=== PATIENT | male | born 1990 | race African-American/Black ===

== ENCOUNTER 2018-03-05 20:28 | Emergency (ER) | payer SELFPAY ==
[~2018-03-05 20:28] MED LIST: ISOVUE-370 76%-LOCM 1 ML ONE
[2018-03-05] MEDS ORDERED: Ibuprofen 200 MG TAB ONE (21:25)
[2018-03-05] MEDS ORDERED: Ketorolac Tromethamine 30 MG/ML VIAL ONE (22:39)
[2018-03-05 22:41] LABS: #Eosinphils 0.1 thou/uL (0.0-0.7); #Lymphocytes 3.1 thou/uL (1.20-3.40); #Monocytes 0.4 thou/uL (0.11-0.59); #Neutrophils 3.5 thou/uL (1.40-6.50); %Basophils 0.7 % (0.0-1.0); %Eosinophils 1.7 % (0.0-10.0); %Lymphocytes 42.7 % (21.0-51.0); %Monocytes 6.2 % (0.0-10.0); %Neutrophils 48.8 % (42.0-75.0); Hemoglobin 14.6 g/dL (14.0-18.0); Mean Corpuscular HGB CONC 32.5 g/dL (32.0-36.0); Mean Corpuscular Hemoglobin 27.4 pg (27.0-31.0); Mean Corpuscular Volume 84.3 fL (78.0-98.0); Mean Platelet Volume 7.9 fL (7.4-10.4); Platelet Count 234 thou/uL (130-400); RBC Distribution Width 12.6 % (11.5-14.5); Red Blood Cell (RBC) Count 5.31 mill/uL (4.70-6.10); White Blood Cell (WBC) Count 7.2 thou/uL (4.8-10.8)
[2018-03-05 23:04] LABS: ALT (SGPT) 23 U/L (8-55); AST (SGOT) 15 U/L (5-34); Albumin 4.6 g/dL (3.5-5.0); Alkaline Phosphatase 90 U/L (40-150); Anion Gap 14 mmol/L (10-20); BUN (Urea Nitrogen) 16 mg/dL (8.9-20.6); Bilirubin, Total 0.4 mg/dL (0.2-1.2); CRP (Inflammatory) 0.81 mg/dL (= or < 0.5); Calc. Creatinine Clearance 0 mL/min (70-130); Calcium 9.7 mg/dL (7.8-10.44); Carbon Dioxide 24 mmol/L (22-29); Chloride 105 mmol/L (98-107); Estimated GFR-MDRD Greater than 90; Globulin 3.9 g/dL (2.4-3.5); Glucose 86 mg/dL (70-105); Protein, Total 8.5 g/dL (6.0-8.3); Sodium 139 mmol/L (136-145)
[2018-03-06] MEDS ORDERED: HYDROcodone/Acetaminophen 5/325 mg Tablet ONE (00:52)
[2018-03-06] MEDS ORDERED: Penicillin V Potassium 250 MG TAB PO SCH (01:00)
[2018-03-06] MEDS ORDERED: Lidocaine 1% w/Epinephrine 1:100K 20 ML VIAL ONE (01:16)
[2018-03-06] MEDS ORDERED: Lidocaine 2% Jelly 5 ML TUBE ONE (01:16)
[2018-03-06] MEDS ORDERED: Bupivacaine 0.5% 10 ML VIAL ONE (01:16)
[2018-03-06] MEDS ORDERED: Lidocaine Viscous Sol 2% 15 ml UD Cup ONE (01:17)
--- NOTE | 2018-03-06 14:20 | CT ---
PRELIMINARY REPORT/[facility]/EMERGENTY AFTER-HOURS PROCEDURE CT Neck With Intravenous Contrast CLINICAL HISTORY: 28 years old, male; Pain; Neck pain; Patient HX: Patient presents for evaluation of toothache TECHNIQUE: Axial computed tomography images of the neck with intravenous contrast. COMPARISON: No relevant prior studies available. FINDINGS: Oropharynx: Normal. No significant tonsillar enlargement. No peritonsillar abscess. Hypopharynx: Normal. Larynx: Normal. Normal epiglottis. Trachea: Normal. Retropharyngeal space: Normal. Submandibular/parotid glands: The parotid and submandibular salivary glands are normal. Thyroid: The thyroid gland is normal. Bones/joints: The vertebral foramen are grossly intact. No acute fracture. Soft tissues: Normal. Vasculature: No acute findings. Lymph nodes: Normal. No lymphadenopathy. Lung apices: Unremarkable as visualized. IMPRESSION: No acute findings. Thank you for allowing us to participate in the care of your patient. Dictated and Authenticated by: Siva Hale MD 03/06/2018 1:04 AM Central Time ([place] & [place]) FINAL REPORT POSTCONTRAST SOFT TISSUE NECK CT: HISTORY: Right lower dental infection. Fever at home. Pain and swelling. COMPARISON: None. TECHNIQUE: Postcontrast soft tissue neck CT is performed in the axial plane. Reformatted images are submitted f or interpretation. FINDINGS: This report is in agreement with the preliminary report by [facility]. There is no acute abnormality in the soft tissues of the neck. There are enlarged bilateral soft tissue neck lymph nodes. For example, t here is an enlarged right level I lymph node measuring 1.8 x 1.0 cm, enlarged right level II lymph no de measuring 1.3 x 1.3 cm, a large level II lymph node measuring 1.0 x 1.3 cm. Lymphadenopathy is pr esumed to be reactive. Other etiologies cannot be excluded. Clinical correlation is essential. The re is a large submental lymph node measuring 1.2 x 1.3 cm. Results of the exam were discussed with Dr. Pimentel 10:29 a.m. 03/06/18. CODE CR POS: [id number]
== END 2018-03-06 01:34 | disposition home or self-care (01) ==
LOC: ERS 20:28
DX: K04.7 Periapical abscess without sinus (principal); F41.9 Anxiety disorder, unspecified; F32.9 Major depressive disorder, single episode, unspecified; F90.9 Attention-deficit hyperactivity disorder, unspecified type
CPT/HCPCS: 64400; 70491; 80053; 85025; 85652; 86140; 96374; J1885; J2001; J3490

== ENCOUNTER 2019-05-11 08:36 | Emergency (ER) | payer SELFPAY ==
[2019-05-11 09:14] LABS: #Eosinphils 0.1 thou/uL (0.0-0.7); #Lymphocytes 2.5 thou/uL (1.20-3.40); #Monocytes 0.5 thou/uL (0.11-0.59); #Neutrophils 2.7 thou/uL (1.40-6.50); %Basophils 0.2 % (0.0-1.0); %Eosinophils 1.9 % (0.0-10.0); %Lymphocytes 43.4 % (21.0-51.0); %Neutrophils 46.6 % (42.0-75.0); Hemoglobin 15.8 g/dL (14.0-18.0); Mean Corpuscular HGB CONC 31.6 g/dL (32.0-36.0); Mean Corpuscular Hemoglobin 26.8 pg (27.0-31.0); Mean Corpuscular Volume 84.9 fL (78.0-98.0); Mean Platelet Volume 9.2 fL (7.4-10.4); Platelet Count 161 thou/uL (130-400); RBC Distribution Width 13.3 % (11.5-14.5); Red Blood Cell (RBC) Count 5.87 mill/uL (4.70-6.10); White Blood Cell (WBC) Count 5.7 thou/uL (4.8-10.8)
[2019-05-11] MEDS ORDERED: Meclizine HCl 25 MG TAB ONE (09:16)
[2019-05-11 09:32] LABS: ALT (SGPT) 20 U/L (8-55); AST (SGOT) 11 U/L (5-34); Albumin 4.5 g/dL (3.5-5.0); Alkaline Phosphatase 72 U/L (40-150); Anion Gap 11 mmol/L (10-20); BUN (Urea Nitrogen) 17 mg/dL (8.9-20.6); Bilirubin, Total 0.3 mg/dL (0.2-1.2); Calc. Creatinine Clearance 0 mL/min (70-130); Calcium 9.5 mg/dL (7.8-10.44); Carbon Dioxide 27 mmol/L (22-29); Chloride 104 mmol/L (98-107); Estimated GFR-MDRD 86; Globulin 3.3 g/dL (2.4-3.5); Glucose 100 mg/dL (70-105); Potassium 4.1 mmol/L (3.5-5.1); Protein, Total 7.8 g/dL (6.0-8.3); Sodium 138 mmol/L (136-145)
--- NOTE | 2019-05-13 13:38 | EKG ---
Test Reason : Blood Pressure : / mmHG Vent. Rate : 061 BPM Atrial Rate : 061 BPM P-R Int : 144 ms QRS Dur : 088 ms QT Int : 380 ms P-R-T Axes : 048 049 048 degrees QTc Int : 382 ms Normal sinus rhythm Early repolarization Normal ECG Confirmed by RUTHIE MARTÍNEZ D.O. ([id number]), make up editor BRIDGER BUSTAMANTE ([id number]) on 05/13/2019 1:38:00 PM Referred By: Confirmed By:RUTHIE MARTÍNEZ D.O.
== END 2019-05-11 10:40 | disposition home or self-care (01) ==
LOC: ERS 08:36
DX: I10 Essential (primary) hypertension (principal)
CPT/HCPCS: 36415; 80053; 85025; 93005; J8597